=== PATIENT | male | born 1960 | race Caucasian/White ===

== ENCOUNTER 2020-11-17 23:28 | Outpatient (CLI) | payer OTHER | END 2020-11-17 23:59 | disposition critical access hospital (66) | LOC: EMS 23:28 | DX: K92.0 Hematemesis (principal); R41.82 Altered mental status, unspecified | CPT/HCPCS: A0425; A0427 ==

== ENCOUNTER 2020-11-17 23:48 | Emergency (ER) | payer OTHER ==
[2020-11-17] MEDS ORDERED: NALOXONE 0.4 MG/ML VIAL ONE (23:55)
[2020-11-18] MEDS ORDERED: NALOXONE 0.4 MG/ML VIAL IVP STA ×2 (00:02→01:05)
--- NOTE | 2020-11-18 00:02 | ED Physician Documentation ---
PD HPI ALTERED MENTAL STATUS - Stated complaint Stated Complaint: UNRESPONSIVE - Chief complaint Chief Complaint: Neuro - History obtained from History obtained from: EMS - History of Present Illness Timing - onset: Today Quality / character: Unresponsive Basline status: Other (unknown) Treatment WHOLESALER: Accucheck (127) - Additional information Additional information: BIBA. patient noncontributory to HPI/ROS/exam due to severely AMS. Per EMS report, patient lives with a roommate. Roommate told EMS that patient indicated he didn't feel well at approximately 5 PM tonight. The roommate c hecked on patient approximately 30 minutes WHOLESALER and found patient on the floor in the bathroom with blood around his mouth and on the bathroom floor, minimally responsive. EMS confirm that there was significant amount of blood on bathroom floor around patient on scene and that patient is minimally responsive. EMS says patient's GCS is 8, but that he became less responsive en route to ED. Review of Systems Unable to obtain: Unresponsive PD PAST MEDICAL HISTORY - Past Medical History Other Past Medical History: unknown - Past Surgical History Other past surgical history: unknown - Present Medications Home Medications: Ambulatory Orders Medication Instructions Recorded Confirmed Home Medications Unobtainable 11/18/20 11/18/20 [HOME MEDICATIONS UNOBTAINABLE] - Allergies Allergies/Adverse Reactions: Allergies Allergy/AdvReac Type Severity Reaction Status Date / Time Unable to Assess Allergy Verified 11/18/20 00:04 - Social History Additional Social History: unknown PD ED PE NORMAL - Vitals Vital signs reviewed: Yes - HEENT HEENT: Other (pupils are mid-sized, equal, minimally reactive to light. parched mucous membranes) - Cardiac Cardiac: No murmur - Respiratory Respiratory: No respiratory distress, Clear bilaterally - Abdomen Abdomen: Soft - Derm Derm: Normal color, Warm and dry - Extremities Extremities: No edema - Neuro Eye Opening: None Motor: Withdraws to Pain Verbal: None GCS Score: 6 PD ED PE EXPANDED - General General: Unresponsive, Other (dark red/black vomitus around mouth, down neck and on shirt) - Eyes Eyes: Scleral icterus - Cardiac Cardiac: Tachy, Regular Rhythm - Abdomen Abdomen: Bruising (faint bruising bilateral abdominal wall), Other Abdomen Visual: 1 - swelling (focal, soft swelling with bruising) Results - Vitals Vitals: Vital Signs - 24 hr 11/17/20 11/18/20 11/18/20 23:50 00:10 00:14 Temperature 37.1 C Heart Rate 119 H 123 H 126 H Respiratory 19 18 24 Rate Blood Pressure 189/113 H 147/109 H 220/116 H O2 Saturation 100 100 100 11/18/20 11/18/20 11/18/20 00:17 00:20 00:30 Temperature 36.6 C 35.7 C L Heart Rate 127 H 124 H 123 H Respiratory 19 18 22 Rate Blood Pressure 227/101 H 229/101 H O2 Saturation 100 100 99 11/18/20 11/18/20 11/18/20 00:35 00:40 01:00 Temperature 35.8 C L 35.9 C L Heart Rate 126 H 126 H 123 H Respiratory 21 26 H 20 Rate Blood Pressure 229/101 H 201/103 H 132/75 H O2 Saturation 100 99 95 11/18/20 11/18/20 11/18/20 01:15 01:30 01:45 Temperature 35.9 C L 36 C L 35.9 C L Heart Rate 119 H 115 H 118 H Respiratory 20 20 20 Rate Blood Pressure 128/74 123/70 158/89 H O2 Saturation 93 93 93 11/18/20 11/18/20 11/18/20 01:50 02:21 02:30 Temperature 36.1 C L 36.1 C L Heart Rate 108 H 99 99 Respiratory 14 14 Rate Blood Pressure 92/59 L 91/59 L O2 Saturation 97 97 Oxygen O2 Source Mechanical ventilator - EKG (time done) No standard instances Rate: Rate (enter#) (121) Rhythm: Sinus tachycardia [place]: Normal Intervals: Normal [place] QRS: Normal Ischemia: Normal ST segments - Labs Labs: Laboratory Tests 11/17/20 11/18/20 11/18/20 23:49 00:15 00:15 WBC 11.9 H RBC 3.55 L Hgb 11.4 L Hct 35.8 L MCV 100.8 H MCH 32.1 H MCHC 31.8 L RDW 18.9 H Plt Count 138 MPV 12.2 H Neut # (Auto) 9.9 H Lymph # (Auto) 0.9 L Mcpherson # (Auto) 1.0 Eos # (Auto) 0.0 Baso # (Auto) 0.0 Absolute Nucleated RBC 0.00 Nucleated RBC % 0.0 PT INR APTT Sodium 143 Potassium 4.4 Chloride 108 Carbon Dioxide 18 L Anion Gap 17.0 H BUN 40 H Creatinine 0.9 Estimated GFR (MDRD) 87 L Glucose 144 H Calcium 7.9 L Total Bilirubin 3.9 H AST 89 H ALT 52 Alkaline Phosphatase 119 Ammonia Troponin I High Sens B-Natriuretic Peptide 106 H Total Protein 6.5 L Albumin 2.7 L Globulin 3.8 Albumin/Globulin Ratio 0.7 L Lipase 31 Urine Color Urine Clarity Urine pH Ur Specific Cherry Log Urine Protein Urine Glucose (UA) Urine Ketones Urine Occult Blood Urine Nitrite Urine Bilirubin Urine Urobilinogen Ur Leukocyte Esterase Urine RBC Urine WBC Ur Squamous Epith Cells Urine Bacteria Ur Microscopic Review Urine Culture Comments Nasal Adenovirus (PCR) Nasal B. parapertussis DNA (PCR) Nasal Coronavir 229E PCR Nasal Coronavir HKU1 PCR Nasal Coronavir NL63 PCR Nasal Coronavir OC43 PCR Nasal Enterovir/Rhinovir PCR Nasal Influenza B PCR Nasal Influenza A PCR Nasal Parainfluen 1 PCR Nasal Parainfluen 2 PCR Nasal Parainfluen 3 PCR Nasal Parainfluen 4 PCR Nasal RSV (PCR) Nasal B.pertussis DNA PCR Nasal C.pneumoniae (PCR) Samson Human Metapneumo PCR Nasal M.pneumoniae (PCR) Nasal SARS-CoV-2 (PCR) Salicylates < 6.0 Urine Opiates Screen Ur Oxycodone Screen Urine Methadone Screen Ur Propoxyphene Screen Acetaminophen < 10 L Ur Barbiturates Screen Ur Tricyclics Screen Ur Phencyclidine Scrn Ur Amphetamine Screen U Methamphetamines Scrn U Benzodiazepines Scrn Urine Cocaine Screen U Cannabinoids Screen Ethyl Alcohol < 5.0 Blood Type Blood Type Recheck Antibody Screen Crossmatch IS Only 11/18/20 11/18/20 11/18/20 00:15 00:15 00:16 WBC RBC Hgb Hct MCV MCH MCHC RDW Plt Count MPV Neut # (Auto) Lymph # (Auto) Mcpherson # (Auto) Eos # (Auto) Baso # (Auto) Absolute Nucleated RBC Nucleated RBC % PT INR APTT Sodium Potassium Chloride Carbon Dioxide Anion Gap BUN Creatinine Estimated GFR (MDRD) Glucose Calcium Total Bilirubin AST ALT Alkaline Phosphatase Ammonia Troponin I High Sens 122.0 H* B-Natriuretic Peptide Total Protein Albumin Globulin Albumin/Globulin Ratio Lipase Urine Color Urine Clarity Urine pH Ur Specific Cherry Log Urine Protein Urine Glucose (UA) Urine Ketones Urine Occult Blood Urine Nitrite Urine Bilirubin Urine Urobilinogen Ur Leukocyte Esterase Urine RBC Urine WBC Ur Squamous Epith Cells Urine Bacteria Ur Microscopic Review Urine Culture Comments Nasal Adenovirus (PCR) Nasal B. parapertussis DNA (PCR) Nasal Coronavir 229E PCR Nasal Coronavir HKU1 PCR Nasal Coronavir NL63 PCR Nasal Coronavir OC43 PCR Nasal Enterovir/Rhinovir PCR Nasal Influenza B PCR Nasal Influenza A PCR Nasal Parainfluen 1 PCR Nasal Parainfluen 2 PCR Nasal Parainfluen 3 PCR Nasal Parainfluen 4 PCR Nasal RSV (PCR) Nasal B.pertussis DNA PCR Nasal C.pneumoniae (PCR) Samson Human Metapneumo PCR Nasal M.pneumoniae (PCR) Nasal SARS-CoV-2 (PCR) Salicylates Urine Opiates Screen Ur Oxycodone Screen Urine Methadone Screen Ur Propoxyphene Screen Acetaminophen Ur Barbiturates Screen Ur Tricyclics Screen Ur Phencyclidine Scrn Ur Amphetamine Screen U Methamphetamines Scrn U Benzodiazepines Scrn Urine Cocaine Screen U Cannabinoids Screen Ethyl Alcohol Blood Type O POSITIVE Blood Type Recheck O POSITIVE Antibody Screen NEGATIVE Crossmatch IS Only See Detail 11/18/20 11/18/20 11/18/20 00:33 00:34 01:16 WBC RBC Hgb Hct MCV MCH MCHC RDW Plt Count MPV Neut # (Auto) Lymph # (Auto) Mcpherson # (Auto) Eos # (Auto) Baso # (Auto) Absolute Nucleated RBC Nucleated RBC % PT 21.8 H INR 2.0 H APTT 27.0 Sodium Potassium Chloride Carbon Dioxide Anion Gap BUN Creatinine Estimated GFR (MDRD) Glucose Calcium Total Bilirubin AST ALT Alkaline Phosphatase Ammonia Troponin I High Sens B-Natriuretic Peptide Total Protein Albumin Globulin Albumin/Globulin Ratio Lipase Urine Color YELLOW Urine Clarity CLEAR Urine pH 6.0 Ur Specific Cherry Log 1.025 Urine Protein NEGATIVE Urine Glucose (UA) NEGATIVE Urine Ketones NEGATIVE Urine Occult Blood MODERATE H Urine Nitrite NEGATIVE Urine Bilirubin NEGATIVE Urine Urobilinogen 1 (NORMAL) Ur Leukocyte Esterase NEGATIVE Urine RBC 6-10 H Urine WBC 0-3 Ur Squamous Epith Cells RARE Squamous Urine Bacteria None Seen Ur Microscopic Review INDICATED Urine Culture Comments NOT INDICATED Nasal Adenovirus (PCR) NOT DETECTED Nasal B. parapertussis DNA (PCR) NOT DETECTED Nasal Coronavir 229E PCR NOT DETECTED Nasal Coronavir HKU1 PCR NOT DETECTED Nasal Coronavir NL63 PCR NOT DETECTED Nasal Coronavir OC43 PCR NOT DETECTED Nasal Enterovir/Rhinovir PCR NOT DETECTED Nasal Influenza B PCR NOT DETECTED Nasal Influenza A PCR NOT DETECTED Nasal Parainfluen 1 PCR NOT DETECTED Nasal Parainfluen 2 PCR NOT DETECTED Nasal Parainfluen 3 PCR NOT DETECTED Nasal Parainfluen 4 PCR NOT DETECTED Nasal RSV (PCR) NOT DETECTED Nasal B.pertussis DNA PCR NOT DETECTED Nasal C.pneumoniae (PCR) NOT DETECTED Samson Human Metapneumo PCR NOT DETECTED Nasal M.pneumoniae (PCR) NOT DETECTED Nasal SARS-CoV-2 (PCR) NOT DETECTED Salicylates Urine Opiates Screen NEGATIVE Ur Oxycodone Screen NEGATIVE Urine Methadone Screen NEGATIVE Ur Propoxyphene Screen NEGATIVE Acetaminophen Ur Barbiturates Screen NEGATIVE Ur Tricyclics Screen NEGATIVE Ur Phencyclidine Scrn NEGATIVE Ur Amphetamine Screen NEGATIVE U Methamphetamines Scrn NEGATIVE U Benzodiazepines Scrn NEGATIVE Urine Cocaine Screen NEGATIVE U Cannabinoids Screen POSITIVE H Ethyl Alcohol Blood Type Blood Type Recheck Antibody Screen Crossmatch IS Only 11/18/20 01:16 WBC RBC Hgb Hct MCV MCH MCHC RDW Plt Count MPV Neut # (Auto) Lymph # (Auto) Mcpherson # (Auto) Eos # (Auto) Baso # (Auto) Absolute Nucleated RBC Nucleated RBC % PT INR APTT Sodium Potassium Chloride Carbon Dioxide Anion Gap BUN Creatinine Estimated GFR (MDRD) Glucose Calcium Total Bilirubin AST ALT Alkaline Phosphatase Ammonia 184.7 H* Troponin I High Sens B-Natriuretic Peptide Total Protein Albumin Globulin Albumin/Globulin Ratio Lipase Urine Color Urine Clarity Urine pH Ur Specific Cherry Log Urine Protein Urine Glucose (UA) Urine Ketones Urine Occult Blood Urine Nitrite Urine Bilirubin Urine Urobilinogen Ur Leukocyte Esterase Urine RBC Urine WBC Ur Squamous Epith Cells Urine Bacteria Ur Microscopic Review Urine Culture Comments Nasal Adenovirus (PCR) Nasal B. parapertussis DNA (PCR) Nasal Coronavir 229E PCR Nasal Coronavir HKU1 PCR Nasal Coronavir NL63 PCR Nasal Coronavir OC43 PCR Nasal Enterovir/Rhinovir PCR Nasal Influenza B PCR Nasal Influenza A PCR Nasal Parainfluen 1 PCR Nasal Parainfluen 2 PCR Nasal Parainfluen 3 PCR Nasal Parainfluen 4 PCR Nasal RSV (PCR) Nasal B.pertussis DNA PCR Nasal C.pneumoniae (PCR) Samson Human Metapneumo PCR Nasal M.pneumoniae (PCR) Nasal SARS-CoV-2 (PCR) Salicylates Urine Opiates Screen Ur Oxycodone Screen Urine Methadone Screen Ur Propoxyphene Screen Acetaminophen Ur Barbiturates Screen Ur Tricyclics Screen Ur Phencyclidine Scrn Ur Amphetamine Screen U Methamphetamines Scrn U Benzodiazepines Scrn Urine Cocaine Screen U Cannabinoids Screen Ethyl Alcohol Blood Type Blood Type Recheck Antibody Screen Crossmatch IS Only - Rads (name of study) CT head Radiology: Prelim report reviewed, See rad report chest xray Radiology: Prelim report reviewed, See rad report Procedures - Intubation Provider: Emergency physician Medications: Versed, Propofol Blade: Glidescope Tube: Size-enter number (7.5), Cuffed, Marked at lips-enter cm (25) Route: Oral Confirmation: Direct visualization (via glidescope), Bilateral breath sounds, No abdominal breath sound, Pulse ox, Chest xray Complications: No compications, Other (CXR shows ETT 4.5 cm AC, and subsequently it was advanced 2 cm by respiratory therapist) PD MEDICAL DECISION MAKING - ED course Complexity details: reviewed results, re-evaluated patient, considered differential ED course: NGT has 100cc dark black/coffee ground output, further suggestive UGI bleeding. He arrives minimally responsive and is intubated for airway protection, with GCS of 6 on my exam. By the time of transfer out of our ED, NGT output was 275 cc black/coffee ground material. His blood tests are most notable for significantly elevated ammonia, mildly elevated bilirubin, bun 40 with normal creatinine. D/W Dr. Ye (hospitalist at [facility]); he recommends transfer, as patient would likely benefit from higher level of care. Given his elevated bilirubin and very high ammonia, the concern is possible hepatic encephalopathy and whether he has bleeding from varices would be best determined at a facility that could properly intervene (possibly would need IR, for example). D/W Dr. Doe (agricultural economics professor at [employer] [employer] [facility]/[place]), he accepts transfer to [facility]. - Critical Care Time(min): 45 Time Includes: Direct patient care, Reassess patient, Document care, Coordinate care, See progress note Data interpretation: Labs, Pulse ox, CXR, See progress note Procedures included in critical care time: Ventilator mgmt, See progress note Procedures excluded from critical care time: Intubation, EKG, See progress note Departure - Departure Disposition: 02 Transfer Acute Care Hosp Clinical Impression: Upper gastrointestinal bleeding, Encephalopathy Condition: Stable Discharge Date/Time: 11/18/20 03:10
[2020-11-18] MEDS ORDERED: MIDAZOLAM 2 MG/2 ML VIAL ONE ×2 (00:03→00:09)
[2020-11-18] MEDS ORDERED: NALOXONE 0.4 MG/ML VIAL ONE (00:03)
[2020-11-18] MEDS ORDERED: PANTOPRAZOLE 40 MG VIAL IVP STA (00:03)
[2020-11-18] MEDS ORDERED: SUCCINYLCHOLINE 200 MG/10 ML VIAL ONE ×2 (00:04→00:11)
[2020-11-18] MEDS ORDERED: KETAMINE 500 MG/10 ML VIAL ONE (00:09)
[2020-11-18] MEDS ORDERED: ETOMIDATE 40 MG/20 ML VIAL IVP ONE (00:09)
[2020-11-18] MEDS ORDERED: PROPOFOL 200 MG/20 ML VIAL IVP ONE (00:10)
[2020-11-18] MEDS ORDERED: ROCURONIUM 50 MG/5 ML VIAL ONE (00:10)
[2020-11-18] MEDS ORDERED: OCTREOTIDE 500 MCG in SODIUM CHLORIDE 0.9% 100ML 95 ML IV STA (00:25)
[2020-11-18] MEDS ORDERED: PROPOFOL 500 MG/50 ML 500 MG/50 ML VIAL IV STA ×2 (00:26→02:47)
[2020-11-18] MEDS ORDERED: PROPOFOL 500 MG/50 ML 500 MG/50 ML VIAL ONE (00:28)
[2020-11-18 00:30] LABS: BASOPHILS % (AUTO) 0.3 %; EOSINOPHILS % (AUTO) 0.2 %; HCT - HEMATOCRIT 35.8 % (42.0-52.0); HGB - HEMOGLOBIN 11.4 g/dL (14.0-18.0); LYMPHOCYTES # (AUTO) 0.9 10^3/uL (1.5-3.5); LYMPHOCYTES % (AUTO) 7.3 %; MEAN CORPUSCULAR HEMOGLOBIN 32.1 pg (27.0-31.0); MEAN CORPUSCULAR HGB CONC 31.8 g/dL (32.0-36.0); MEAN CORPUSCULAR VOLUME 100.8 fL (80.0-94.0); MEAN PLATELET VOLUME 12.2 fL (7.4-11.4); MONOCYTES % (AUTO) 8.6 %; NEUTROPHILS # (AUTO) 9.9 10^3/uL (1.5-6.6); NEUTROPHILS % (AUTO) 83.2 %; PLT - PLATELET COUNT 138 10^3/uL (130-450); RED BLOOD COUNT 3.55 10^6/uL (4.70-6.10); RED CELL DISTRIBUTION WIDTH 18.9 % (12.0-15.0); WHITE BLOOD COUNT 11.9 x10^3/uL (4.8-10.8)
[2020-11-18 01:04] LABS: MUDS CUTOFF CONCENTRATIONS CUTOFF CONC BELOW:
[2020-11-18] MEDS ORDERED: OCTREOTIDE 100 MCG/ML VIAL ONE (01:05)
[2020-11-18 01:06] LABS: BILIRUBIN,URINE NEGATIVE (NEGATIVE); GLUCOSE, URINE (UA) NEGATIVE (NEGATIVE); KETONES,URINE (UA) NEGATIVE (NEGATIVE); LEUKOCYTE ESTERASE, URINE NEGATIVE (NEGATIVE); NITRITE,URINE NEGATIVE (NEGATIVE); OCCULT BLOOD,URINE MODERATE (NEGATIVE); PROTEIN,URINE NEGATIVE (NEGATIVE); UROBILINOGEN,URINE 1 (NORMAL) E.U./dL (NORMAL)
[2020-11-18] MEDS ORDERED: PROPOFOL 200 MG/20 ML VIAL IVP STA (01:06)
[2020-11-18 01:14] LABS: BACTERIA,URINE None Seen /HPF (None Seen); CLARITY,URINE CLEAR (CLEAR); SQUAMOUS EPITHELIAL CELL,UR RARE Squamous (<= Few); WBC,URINE 0-3 /HPF (0-3)
[2020-11-18 01:15] LABS: THC CANNABINOID SCREEN, URINE POSITIVE (NEGATIVE)
[2020-11-18 01:15] LABS: ACETAMINOPHEN < 10 ug/mL (10-30); ALBUMIN 2.7 g/dL (3.2-5.5); ALBUMIN/GLOBULIN RATIO 0.7 (1.0-2.2); ALKALINE PHOSPHATASE 119 IU/L (42-121); ALT ALANINE AMINOTRANSFERASE 52 IU/L (10-60); AST ASPARTATE AMINOTRANSFERASE 89 IU/L (10-42); BILIRUBIN,TOTAL 3.9 mg/dL (0.2-1.0); BUN - BLOOD UREA NITROGEN 40 mg/dL (6-20); CALCIUM 7.9 mg/dL (8.5-10.3); CARBON DIOXIDE - CO2 18 mmol/L (21-32); CHLORIDE 108 mmol/L (101-111); CREATININE 0.9 mg/dL (0.6-1.2); ETOH - ETHANOL < 5.0 mg/dL; GFR - MDRD 87 (>89); GLUCOSE 144 mg/dL (70-100); LIPASE 31 U/L (22-51); POTASSIUM 4.4 mmol/L (3.5-5.0); SALICYLATE < 6.0 mg/dL; SODIUM 143 mmol/L (135-145); TOTAL PROTEIN 6.5 g/dL (6.7-8.2)
[2020-11-18 01:16] LABS: AMPHETAMINE SCREEN,URINE NEGATIVE (NEGATIVE); BARBITURATE SCREEN,UR NEGATIVE (NEGATIVE); BENZODIAZEPINES SCREEN, URINE NEGATIVE (NEGATIVE); COCAINE SCREEN URINE NEGATIVE (NEGATIVE); METHADONE SCREEN, URINE NEGATIVE (NEGATIVE); METHAMPHETAMINES SCREEN, URINE NEGATIVE (NEGATIVE); OPIATE SCREEN, URINE NEGATIVE (NEGATIVE); OXYCODONE SCREEN, URINE NEGATIVE (NEGATIVE); PROPOXYPHENE SCREEN, URINE NEGATIVE (NEGATIVE); TRICYCLIC ANTIDEPRESSANT,URINE NEGATIVE (NEGATIVE)
[2020-11-18] MEDS ORDERED: MIDAZOLAM 2 MG/2 ML VIAL IVP STA ×2 (01:17→01:20)
[2020-11-18] MEDS ORDERED: SUCCINYLCHOLINE 200 MG/10 ML VIAL IVP STA (01:21)
[2020-11-18] MEDS ORDERED: SODIUM CHLORIDE 0.9% 1,000 ML IV STA ×3 (01:21→03:02)
[2020-11-18 01:39] LABS: B. PARAPERTUSSIS- RESP PCR PAN NOT DETECTED; B. PERTUSSIS- RESP PCR PANEL NOT DETECTED; C. PNEUMONIAE- RESP PCR PANEL NOT DETECTED; CORONAVIRUS 229E-RESP PCR NOT DETECTED; CORONAVIRUS HKU1-RESP PCR NOT DETECTED; CORONAVIRUS NL63-RESP PCR NOT DETECTED; CORONAVIRUS OC43-RESP PCR NOT DETECTED; HUMAN METAPNEUMOVIRUS NOT DETECTED; INFLUENZA A- RESP PCR PANEL NOT DETECTED; INFLUENZA B - RESP PCR PANEL NOT DETECTED; M. PNEUMONIAE- RESP PCR PANEL NOT DETECTED; PARAINFLUENZA VIRUS 1 NOT DETECTED; PARAINFLUENZA VIRUS 2 NOT DETECTED; PARAINFLUENZA VIRUS 3 NOT DETECTED; PARAINFLUENZA VIRUS 4 NOT DETECTED; RHINOVIRUS/ENTEROVIRUS NOT DETECTED; RSV- RESP PCR PANEL NOT DETECTED; SARS-CoV-2 -RESP PCR PANEL NOT DETECTED
[2020-11-18 01:47] LABS: PT - PROTHROMBIN TIME 21.8 secs (9.9-12.6)
[2020-11-18 03:19] VITALS: BP 91/59
--- NOTE | 2020-11-18 06:58 | CT Report ---
PROCEDURE: HEAD WO INDICATIONS: Acute altered mental status. TECHNIQUE: Noncontrast 4.5 mm thick angled axial sections acquired from the foramen magnum to the vertex. For r adiation dose reduction, the following was used: automated exposure control, adjustment of mA and/or kV according to patient size. COMPARISON: None FINDINGS: Image quality: Degraded by patient motion artifact. CSF spaces: Basal cisterns are patent. No extra-axial fluid collections. The ventricles are symmet salma in size and shape. Brain: No intracranial bleeds or masses. There is cerebral volume loss for age, with resultant vent ricular and sulcal prominence. There are periventricular and deep white matter chronic small vessel ischemic changes. There is intracranial internal carotid artery atherosclerosis. Skull and face: Calvarium and visualized facial bones appear intact, without suspicious lesions. Sinuses: Visualized sinuses and mastoids are clear. IMPRESSION: No acute intracranial disease process. Reviewed by: Linda Peck MD, PhD on 11/18/2020 6:57 AM PDT Approved by: Linda Peck MD, PhD on 11/18/2020 6:57 AM PDT Station ID: [id number]
--- NOTE | 2020-11-18 08:25 | XRAY Report ---
PROCEDURE: Chest for Line Placement INDICATIONS: ETT TECHNIQUE: One view of the chest was acquired. COMPARISON: None FINDINGS: Surgical changes and devices: Endotracheal tube positioning normal. Lungs and pleura: No pleural effusions or pneumothorax. Lungs are mildly abnormal, with a mild alve olar edema pattern but this is in the setting of moderately reduced inspiratory volume.. Mediastinum: Mediastinal contours appear normal. Heart size is normal. Bones and chest wall: No suspicious bony lesions. Overlying soft tissues appear unremarkable. IMPRESSION: The endotracheal tube positioning normal. Mild pulmonary edema pattern, but in the setting of reduced inspiratory volume. This could represent a manifestation of crowding of bronchovascular markings wit hout alveolar edema, for example. Reviewed by: Pavan Jalloh MD on 11/18/2020 8:24 AM PDT Approved by: Pavan Jalloh MD on 11/18/2020 8:24 AM PDT Station ID: [id number]
== END 2020-11-18 03:10 | disposition short-term general hospital (02) ==
LOC: EDUNIT# → EDBD → ED 23:48
DX: K92.0 Hematemesis (principal); G93.40 Encephalopathy, unspecified; R40.2432 Glasgow coma scale score 3-8, at arrival to emergency department; R00.0 Tachycardia, unspecified; Z20.822 Contact with and (suspected) exposure to COVID-19
CPT/HCPCS: 0202U; 31500; 36415; 51702; 70450; 71045; 80053; 80306; 80307; 80320; 80329; 81001; 82140; 83690; 83880; 84484; 85025; 85610; 85730; 86850; 86900; 86901; 86920; 93005; 96361; 96374; 96375; 99291; 99292; J0330; J2354; 81003; 82803; 87086

== ENCOUNTER 2021-03-03 17:55 | Outpatient (CLI) | payer OTHER | END 2021-03-03 17:56 | disposition critical access hospital (66) | LOC: EMS 17:55 | DX: R41.82 Altered mental status, unspecified (principal) | CPT/HCPCS: A0425; A0427 ==

== ENCOUNTER 2021-03-03 18:12 | Inpatient (IN) | payer OTHER ==
[2021-03-03] MEDS ORDERED: cefTRIAXone 1 GM VIAL IVP STA (18:30)
[2021-03-03] MEDS ORDERED: PANTOPRAZOLE 40 MG VIAL IVP STA (18:30)
[2021-03-03] MEDS ORDERED: SODIUM CHLORIDE 0.9% 1,000 ML IV STA ×2 (18:31→19:29)
[2021-03-03] MEDS ORDERED: OCTREOTIDE 100 MCG/ML VIAL IVP STA (18:31)
[2021-03-03 18:45] LABS: BASOPHILS % (AUTO) 0.3 %; EOSINOPHILS % (AUTO) 0.2 %; HGB - HEMOGLOBIN 10.6 g/dL (14.0-18.0); LYMPHOCYTES # (AUTO) 0.3 10^3/uL (1.5-3.5); LYMPHOCYTES % (AUTO) 3.6 %; MEAN CORPUSCULAR HEMOGLOBIN 33.2 pg (27.0-31.0); MEAN CORPUSCULAR HGB CONC 33.1 g/dL (32.0-36.0); MEAN CORPUSCULAR VOLUME 100.3 fL (80.0-94.0); MEAN PLATELET VOLUME 12.4 fL (7.4-11.4); MONOCYTES # (AUTO) 0.3 10^3/uL (0.0-1.0); MONOCYTES % (AUTO) 2.9 %; NEUTROPHILS # (AUTO) 8.5 10^3/uL (1.5-6.6); NEUTROPHILS % (AUTO) 92.3 %; PLT - PLATELET COUNT 114 10^3/uL (130-450); RED BLOOD COUNT 3.19 10^6/uL (4.70-6.10); WHITE BLOOD COUNT 9.2 x10^3/uL (4.8-10.8)
[2021-03-03 18:47] LABS: SLIDE REVIEW? Indicated
[2021-03-03 19:08] LABS: INR 3.9 (0.8-1.2)
[2021-03-03 19:15] LABS: PARTIAL THROMBOPLASTIN TIME 52.4 secs (24.9-33.3)
[2021-03-03 19:20] LABS: ALBUMIN 2.1 g/dL (3.2-5.5); ALBUMIN/GLOBULIN RATIO 0.5 (1.0-2.2); BILIRUBIN,TOTAL 7.1 mg/dL (0.2-1.0); CALCIUM 8.3 mg/dL (8.5-10.3); CREATININE 5.7 mg/dL (0.6-1.2); TOTAL PROTEIN 6.5 g/dL (6.7-8.2)
[2021-03-03 19:24] LABS: POTASSIUM 6.3 mmol/L (3.5-5.0)
[2021-03-03 19:31] LABS: BILIRUBIN,URINE NEGATIVE (NEGATIVE); GLUCOSE, URINE (UA) NEGATIVE (NEGATIVE); KETONES,URINE (UA) NEGATIVE (NEGATIVE); LEUKOCYTE ESTERASE, URINE NEGATIVE (NEGATIVE); NITRITE,URINE NEGATIVE (NEGATIVE); OCCULT BLOOD,URINE NEGATIVE (NEGATIVE); PROTEIN,URINE TRACE mg/dL (NEGATIVE); UROBILINOGEN,URINE 0.2 (NORMAL) E.U./dL (NORMAL)
[2021-03-03 19:34] LABS: CLARITY,URINE CLEAR (CLEAR)
[2021-03-03 19:43] LABS: PLATELET ESTIMATE, MANUAL DECREASED (<130,000) (NORMAL); PLATELET MORPHOLOGY NORMAL APPEARANCE (NORMAL)
--- NOTE | 2021-03-03 20:07 | ED Physician Documentation ---
History of Present Illness - Stated complaint Stated Complaint: FOUND DOWN - Chief complaint Chief Complaint: Neuro - History obtained from History obtained from: Patient, EMS - History of Present Illness Timing: Today Pain level max: 0 Pain level now: 0 - Additonal information Additional information: Patient is a 59-year-old male with a history of end-stage liver disease, esophageal varices. He recently spent 2 months at [facility] in [place]. His roommate called EMS today because the patient has been lying on the floor for the past 2 days. Not eating or drinking. He apparently has vomited dark appearing emesis. He has also had very dark stools. Unknown if any other injuries. Review of Systems Unable to obtain: Confused PD PAST MEDICAL HISTORY - Past Medical History Past Medical History: Yes GI: Esophageal varices, Cirrhosis, Other (End-stage liver disease) - Present Medications Home Medications: Ambulatory Orders Medication Instructions Recorded Confirmed Furosemide [Lasix] 40 mg PO DAILY 03/03/21 03/03/21 Lactulose 10 gm PO TID 03/03/21 03/03/21 Nadolol [Corgard] 40 mg PO DAILY 03/03/21 03/03/21 Omeprazole 20 mg PO DAILY 03/03/21 03/03/21 Spironolactone [Aldactone] 100 mg PO DAILY 03/03/21 03/03/21 - Allergies Allergies/Adverse Reactions: Allergies Allergy/AdvReac Type Severity Reaction Status Date / Time Unable to Assess Allergy Verified 11/18/20 00:04 - Living Situation Living Arrangement: reports: At home - Social History Does the pt drink ETOH?: No ETOH Use: Other (Patient reportedly quit drinking) - Family History Family history: reports: Non contributory PD ED PE NORMAL - General General: Other (thin frail, jaundiced) - HEENT HEENT: Moist mucous membranes - Neck Neck: Supple, no meningeal sign - Cardiac Cardiac: RRR, Strong equal pulses - Respiratory Respiratory: No respiratory distress, Clear bilaterally - Abdomen Abdomen: Soft, Non tender, Non distended, Other (Large right lower quadrant abdomen incarcerated hernia) - Back Back: No spinal TTP - Derm Derm: Warm and dry - Extremities Extremities: No edema, No calf tenderness / cord - Neuro Eye Opening: Spontaneous Motor: Localizes to Pain Verbal: Confused GCS Score: 13 Results - Vitals Vitals: Vital Signs - 24 hr 03/03/21 03/03/21 03/03/21 18:15 18:54 19:24 Temperature 34.9 C L 31.7 C L Heart Rate 74 77 78 Respiratory 14 16 11 L Rate Blood Pressure 137/110 H 131/89 H 149/50 H O2 Saturation 95 95 96 03/03/21 03/03/21 03/03/21 19:30 20:00 20:30 Temperature 31.8 C L 32 C L 32.5 C L Heart Rate 76 76 78 Respiratory 11 L 11 L 11 L Rate Blood Pressure 114/66 109/64 111/57 L O2 Saturation 96 96 94 03/03/21 03/03/21 03/03/21 21:00 21:30 22:04 Temperature 32.9 C L 33.3 C L 33.8 C L Heart Rate 75 80 84 Respiratory 11 L 12 11 L Rate Blood Pressure 103/56 L 105/60 105/53 L O2 Saturation 93 93 91 L Oxygen O2 Source Room air - Labs Labs: Laboratory Tests 03/03/21 03/03/21 03/03/21 18:25 18:53 18:53 WBC 9.2 RBC 3.19 L Hgb 10.6 L Hct 32.0 L MCV 100.3 H MCH 33.2 H MCHC 33.1 RDW 21.0 H Plt Count 114 L MPV 12.4 H Neut # (Auto) 8.5 H Lymph # (Auto) 0.[address] [place] # (Auto) 0.3 Eos # (Auto) 0.0 Baso # (Auto) 0.0 Absolute Nucleated RBC 0.00 Nucleated RBC % 0.0 Manual Slide Review Indicated Platelet Estimate DECREASED (<130,000) Platelet Morphology NORMAL APPEARANCE RBC Morph Micro Appear 1+ ACANTHOCYTES PT 40.0 H INR 3.9 H APTT 52.4 H Sodium Potassium Chloride Carbon Dioxide Anion Gap BUN Creatinine Estimated GFR (MDRD) Glucose Lactic Acid Calcium Total Bilirubin AST ALT Alkaline Phosphatase Ammonia 49.7 H Total Creatine Kinase Total Protein Albumin Globulin Albumin/Globulin Ratio Lipase Urine Color Urine Clarity Urine pH Ur Specific [place] Urine Protein Urine Glucose (UA) Urine Ketones Urine Occult Blood Urine Nitrite Urine Bilirubin Urine Urobilinogen Ur Leukocyte Esterase Ur Microscopic Review Urine Culture Comments Nasal Adenovirus (PCR) Nasal B. parapertussis DNA (PCR) Nasal Coronavir 229E PCR Nasal Coronavir HKU1 PCR Nasal Coronavir NL63 PCR Nasal Coronavir OC43 PCR Nasal Enterovir/Rhinovir PCR Nasal Influenza B PCR Nasal Influenza A PCR Nasal Parainfluen 1 PCR Nasal Parainfluen 2 PCR Nasal Parainfluen 3 PCR Nasal Parainfluen 4 PCR Nasal RSV (PCR) Nasal B.pertussis DNA PCR Nasal C.pneumoniae (PCR) Samson Human Metapneumo PCR Nasal M.pneumoniae (PCR) Nasal SARS-CoV-2 (PCR) Blood Type Antibody Screen 03/03/21 03/03/21 03/03/21 18:53 18:53 18:53 WBC RBC Hgb Hct MCV MCH MCHC RDW Plt Count MPV Neut # (Auto) Lymph # (Auto) [place] # (Auto) Eos # (Auto) Baso # (Auto) Absolute Nucleated RBC Nucleated RBC % Manual Slide Review Platelet Estimate Platelet Morphology RBC Morph Micro Appear PT INR APTT Sodium 134 L Potassium 6.3 H* Chloride 102 Carbon Dioxide 11 L* Anion Gap 21.0 H BUN 135 H* Creatinine 5.7 H Estimated GFR (MDRD) 10 L Glucose 96 Lactic Acid Calcium 8.3 L Total Bilirubin 7.1 H AST 392 H ALT 139 H Alkaline Phosphatase 136 H Ammonia Total Creatine Kinase 95 Total Protein 6.5 L Albumin 2.1 L Globulin 4.4 H Albumin/Globulin Ratio 0.5 L Lipase 64 H Urine Color Urine Clarity Urine pH Ur Specific [place] Urine Protein Urine Glucose (UA) Urine Ketones Urine Occult Blood Urine Nitrite Urine Bilirubin Urine Urobilinogen Ur Leukocyte Esterase Ur Microscopic Review Urine Culture Comments Nasal Adenovirus (PCR) Nasal B. parapertussis DNA (PCR) Nasal Coronavir 229E PCR Nasal Coronavir HKU1 PCR Nasal Coronavir NL63 PCR Nasal Coronavir OC43 PCR Nasal Enterovir/Rhinovir PCR Nasal Influenza B PCR Nasal Influenza A PCR Nasal Parainfluen 1 PCR Nasal Parainfluen 2 PCR Nasal Parainfluen 3 PCR Nasal Parainfluen 4 PCR Nasal RSV (PCR) Nasal B.pertussis DNA PCR Nasal C.pneumoniae (PCR) Samson Human Metapneumo PCR Nasal M.pneumoniae (PCR) Nasal SARS-CoV-2 (PCR) Blood Type O POSITIVE Antibody Screen NEGATIVE 03/03/21 03/03/21 03/03/21 19:15 19:23 20:00 WBC RBC Hgb Hct MCV MCH MCHC RDW Plt Count MPV Neut # (Auto) Lymph # (Auto) [place] # (Auto) Eos # (Auto) Baso # (Auto) Absolute Nucleated RBC Nucleated RBC % Manual Slide Review Platelet Estimate Platelet Morphology RBC Morph Micro Appear PT INR APTT Sodium Potassium Chloride Carbon Dioxide Anion Gap BUN Creatinine Estimated GFR (MDRD) Glucose Lactic Acid 7.5 H* Calcium Total Bilirubin AST ALT Alkaline Phosphatase Ammonia Total Creatine Kinase Total Protein Albumin Globulin Albumin/Globulin Ratio Lipase Urine Color DARK YELLOW Urine Clarity CLEAR Urine pH 5.0 Ur Specific [place] 1.025 Urine Protein TRACE Urine Glucose (UA) NEGATIVE Urine Ketones NEGATIVE Urine Occult Blood NEGATIVE Urine Nitrite NEGATIVE Urine Bilirubin NEGATIVE Urine Urobilinogen 0.2 (NORMAL) Ur Leukocyte Esterase NEGATIVE Ur Microscopic Review NOT INDICATED Urine Culture Comments NOT INDICATED Nasal Adenovirus (PCR) NOT DETECTED Nasal B. parapertussis DNA (PCR) NOT DETECTED Nasal Coronavir 229E PCR NOT DETECTED Nasal Coronavir HKU1 PCR NOT DETECTED Nasal Coronavir NL63 PCR NOT DETECTED Nasal Coronavir OC43 PCR NOT DETECTED Nasal Enterovir/Rhinovir PCR NOT DETECTED Nasal Influenza B PCR NOT DETECTED Nasal Influenza A PCR NOT DETECTED Nasal Parainfluen 1 PCR NOT DETECTED Nasal Parainfluen 2 PCR NOT DETECTED Nasal Parainfluen 3 PCR NOT DETECTED Nasal Parainfluen 4 PCR NOT DETECTED Nasal RSV (PCR) NOT DETECTED Nasal B.pertussis DNA PCR NOT DETECTED Nasal C.pneumoniae (PCR) NOT DETECTED Samson Human Metapneumo PCR NOT DETECTED Nasal M.pneumoniae (PCR) NOT DETECTED Nasal SARS-CoV-2 (PCR) NOT DETECTED Blood Type Antibody Screen - Rads (name of study) head CT Radiology: Final report received, EMP read contemporaneously, See rad report cervical spine CT Radiology: Final report received, EMP read contemporaneously, See rad report PD MEDICAL DECISION MAKING - ED course Complexity details: reviewed results, re-evaluated patient, considered differential, d/w family ED course: No acute findings on head CT or cervical spine CT. Patient is minimally responsive in the emergency department. He is DNR with limited interventions. His POA arrived to the emergency department and a long discussion was had about the goals of care. After much discussion, it was decided that he would not want any surgical interventions, interventional radiology, transplants, ICU care including central lines, pressors, etc. He does have a incarcerated right lower abdominal hernia, likely has been there for at least 2 days, likely necrotic bowel. unable to be manually reduced. Given IV fluids. Has significant renal failure. His INR has increased to 3.9. Discussed the case with Dr. Mcghee, hospitalist who accepts for comfort care. This document was made in part using voice recognition software. While efforts are made to proofread this document, sound alike and grammatical errors may occur. Departure - Departure Disposition: 66 [facility] DC/Xfer Clinical Impression: End stage liver disease, Hepatic encephalopathy, Uremia, Hyperkalemia, Incarcerated hernia of abdominal cavity Kidney failure, acute Qualifiers: Acute renal failure type: unspecified Qualified Code(s): N17.9 - Acute kidney failure, unspecified Hypothermia Qualifiers: Encounter type: initial encounter Qualified Code(s): T68.XXXA - Hypothermia, initial encounter Condition: Serious Discharge Date/Time: 03/03/21 22:57
[2021-03-03] MEDS ORDERED: DEXTROSE 5%-0.9% NACL 1,000 ML IV STA (20:23)
[2021-03-03 20:25] LABS: CORONAVIRUS 229E-RESP PCR NOT DETECTED; CORONAVIRUS HKU1-RESP PCR NOT DETECTED; CORONAVIRUS NL63-RESP PCR NOT DETECTED; CORONAVIRUS OC43-RESP PCR NOT DETECTED; HUMAN METAPNEUMOVIRUS NOT DETECTED; INFLUENZA A- RESP PCR PANEL NOT DETECTED; INFLUENZA B - RESP PCR PANEL NOT DETECTED; PARAINFLUENZA VIRUS 1 NOT DETECTED; RHINOVIRUS/ENTEROVIRUS NOT DETECTED; SARS-CoV-2 -RESP PCR PANEL NOT DETECTED
[2021-03-03 20:26] LABS: B. PARAPERTUSSIS- RESP PCR PAN NOT DETECTED; B. PERTUSSIS- RESP PCR PANEL NOT DETECTED; C. PNEUMONIAE- RESP PCR PANEL NOT DETECTED; M. PNEUMONIAE- RESP PCR PANEL NOT DETECTED; PARAINFLUENZA VIRUS 2 NOT DETECTED; PARAINFLUENZA VIRUS 3 NOT DETECTED; PARAINFLUENZA VIRUS 4 NOT DETECTED; RSV- RESP PCR PANEL NOT DETECTED
--- NOTE | 2021-03-03 20:40 | CT Report ---
PROCEDURE: HEAD WO INDICATIONS: found down, aloc TECHNIQUE: Noncontrast 4.5 mm thick angled axial sections acquired from the foramen magnum to the vertex. For r adiation dose reduction, the following was used: automated exposure control, adjustment of mA and/or kV according to patient size. COMPARISON: 12/15/2020 FINDINGS: Image quality: Excellent. CSF spaces: Basal cisterns are patent. No extra-axial fluid collections. The ventricles are symmet salma in size and shape. Brain: No intracranial bleeds or masses. There is cerebral volume loss for age, with resultant vent ricular and sulcal prominence. There are periventricular and deep white matter chronic small vessel ischemic changes. There is intracranial internal carotid artery atherosclerosis. Skull and face: Calvarium and visualized facial bones appear intact, without suspicious lesions. Sinuses: Visualized sinuses and mastoids are clear. IMPRESSION: No acute intracranial disease process. Reviewed by: Linda Peck MD, PhD on 03/03/2021 8:38 PM PDT Approved by: Linda Peck MD, PhD on 03/03/2021 8:38 PM PDT Station ID: [id number]
--- NOTE | 2021-03-03 20:44 | CT Report ---
PROCEDURE: CERVICAL SPINE WO INDICATIONS: found down, aloc TECHNIQUE: Noncontrast 3 mm thick sections acquired from the skull base to the T4 level. Sagittal and coronal r eformats were then constructed. For radiation dose reduction, the following was used: automated exp osure control, adjustment of mA and/or kV according to patient size. COMPARISON: None. FINDINGS: Image quality: Excellent. Bones: No acute fractures or dislocations. Chronic-appearing fracture of the tip of the T1 spinous p rocess. Visualized superior ribs are intact. Spine degenerative disc disease and facet arthropathy a re noted. Soft tissues: Prevertebral soft tissues are normal in thickness. No paravertebral hematomas. No ap ical pneumothoraces. IMPRESSION: 1. No acute fracture. No acute osseous lesion. If there is continued clinical concern for pathology, then MRI should be considered for further evaluation. 2. Chronic fracture of the tip of the T1 spinous process (melina shoulder's fracture). Reviewed by: Linda Peck MD, PhD on 03/03/2021 8:43 PM PDT Approved by: Linda Peck MD, PhD on 03/03/2021 8:43 PM PDT Station ID: [id number]
[2021-03-03] MEDS ORDERED: SODIUM CHLORIDE FLUSH 0.9% 10 ML SYRINGE IVP PRN (22:05)
[2021-03-03] MEDS ORDERED: GLYCOPYRROLATE 1 MG/5 ML VIAL SUBQ PRN (22:13)
[2021-03-03] MEDS ORDERED: LORazepam 2 MG/ML VIAL IVP PRN (22:13)
--- NOTE | 2021-03-03 22:15 | HISTORY & PHYSICAL EXAMINATION ---
History of Present Illness - Admitted From Admitted From:: [facility] ED - History Obtained From Records Reviewed: yes History obtained from: ED physician and patient's medical power of personal injury attorney Exam Limitations: encephalopathic - History of Present Illness HPI Comment/Other: Patient is a 59-year-old male with end-stage liver disease who was brought to the ED by EMS after he was reported by his room mate to have been on the floor of his room for the past 1.5 day. It is unclear what his baseline functional status is. In the ED he is encephalopathic, jaundiced appearing with very dry oral mucosa and has a very protuberant abdomen due to ascites with a hernia on the right lower quadrant of the abdomen. Work-up in the ED included a CMP which showed the following significant find ings: Potassium 6.3, anion gap 21, BUN 135, creatinine 5.7, total bilirubin 7.1, AST 392, ALT 139, alk phos 136, ammonia 49.7. His lactic acid was 7.5 and INR was 3.9. He was admitted at [facility] in [facility] on November 18, 2020 and discharged in January 02, 2021. At that time he had been found unresponsive by his roommate with bloody emesis and presented to [facility] ED where he was intubated for airway protection and then airlifted to [facility]. He underwent a scope by GI. Significant amount of varices were found and banded. He was encephalopathic during that hospital stay. As this was thought to be possibly secondary to when the case encephalopathy with likely component of hepatic encephalopathy. His mentation improved with lactulose he underwent a cognitive eval which showed moderate cognitive impairment and recommendations where for increased assistance at the time of discharge. He was discharged with [facility] speech therapy, RN, social work as well as APS referral for concern of self-neglect. He was presented for admission for further management. I had a conversation with the patient's medical power of personal injury attorney (Lakisha Rios) who was at bedside, highlighting how serious/critical patient's condition was and referencing the labs mentioned above. After consideration she requested the patient be admitted here at [facility] on comfort measures. History - Past Medical History GI: reports: Esophageal varices, GI bleed, Cirrhosis - Past Surgical History General: reports: EGD (with variceal banding) - Family & Social History Family History Comment/Other: Cannot obtain family history because the patient is currently encephalopathic. Social History Notes: Social history is currently limited because the patient is encephalopathic and unable to provide. - POLST Patient has POLST: Yes POLST Status: DNR Meds/Allgy - Home Medications Home Medications: Ambulatory Orders Medication Instructions Recorded Confirmed Furosemide [Lasix] 40 mg PO DAILY 03/03/21 03/03/21 Lactulose 10 gm PO TID 03/03/21 03/03/21 Nadolol [Corgard] 40 mg PO DAILY 03/03/21 03/03/21 Omeprazole 20 mg PO DAILY 03/03/21 03/03/21 Spironolactone [Aldactone] 100 mg PO DAILY 03/03/21 03/03/21 - Allergies Allergies/Adverse Reactions: Allergies Allergy/AdvReac Type Severity Reaction Status Date / Time Unable to Assess Allergy Verified 11/18/20 00:04 Review of Systems - Other Findings Other Findings: A 12 point review of system is limited because the patient is currently encephalopathic and unable to provide. Prior Level of Functionality: He supposedly has a roommate. During his last hospital stay, he underwent a cognitive evaluation and was determined to have moderate cognitive impairment. During that hospital stay and APS referral was made for self-neglect upon discharge. Exam - Vital Signs Vital Signs: Vital Signs x48h Temp Pulse Resp BP Pulse Ox 03/03/21 22:04 33.8 C L 84 11 L 105/53 L 91 L 03/03/21 21:30 33.3 C L 80 12 105/60 93 03/03/21 21:00 32.9 C L 75 11 L 103/56 L 93 03/03/21 20:30 32.5 C L 78 11 L 111/57 L 94 03/03/21 20:00 32 C L 76 11 L 109/64 96 03/03/21 19:30 31.8 C L 76 11 L 114/66 96 03/03/21 19:24 31.7 C L 78 11 L 149/50 H 96 03/03/21 18:54 77 16 131/89 H 95 03/03/21 18:15 34.9 C L 74 14 137/110 H 95 - Physical Exam General Appearance: positive: No acute distress, Lethargic, Other (Jaundiced, gaunt appearing) Eyes Bilateral: positive: PERRL, EOMI, Other (scleral icterus) ENT: positive: Dry mucous membranes Neck: positive: No JVD, Trachea midline Respiratory: positive: Chest non-tender, No respiratory distress, Other (mld crackles) Cardiovascular: positive: Regular rate & rhythm, No murmur Abdomen: positive: Hepatomegaly, Other (Protuberant abdomen, ascites and hernia noted.) Skin: positive: Dry, Other (Jaundiced, bruising noted over body) Extremities: positive: Non-tender, Pedal edema (+1 edema) Neurologic/Psychiatric: positive: Other (lethargic) Conclusion/Plan - Problem List (1) End stage liver disease Conclusion/Plan: INR 3.9, Albumin 2.1 Patient has extensive ascites Recent Hx of esophagea varices with bleeding in the past 4 months He is currently encephalopatic Patient's MELD score is 40 points. This gives an estimated 3-month mortality of 71.3% After a conversation with the patient's medical power of personal injury attorney (Lakisha Rios) h ighlighting how sick the patient currently is, She request the Comfort measures. I explained that we will mainly focus on on keeping the patient comfortable and not undertake any therapeutic measures. She expressed understanding and was agreeable with the plan. Comfort measures were initiated. (2) Ascites of liver Conclusion/Plan: Protuberant abdomen due to ascites A small hernia noted on the right lower quadrant of the abdomen Patient's MELD score is 40 points. This gives an estimated 3-month mortality of 71.3% On comfort measures currently. (3) Encephalopathy Conclusion/Plan: Possibly multifactoria Likely 2/2 to liver and renal failure BUN 135 and Ammonia 49.7 On comfort measures (4) Lactic acidosis Conclusion/Plan: Likely related to Liver Failure Lactic acid was 7.5. Patient was given 2 L of fluid in the ED. Fluids were discontinued due to significant ascites and some mild crackles in the lungs. After discussion with the patient's medical power of personal injury attorney Lakisha Rios, the patient was made comfort care. (5) Hyperkalemia Conclusion/Plan: Potassium was 6.3 Patient initially received IV hydration in the ED. He is currently comfort care. (6) Hypothermia Conclusion/Plan: Temperature was as low as 31.7 degree Celsius. Patient has a bare hugger on Qualifiers: Encounter type: initial encounter Qualified Code(s): T68.XXXA - Hypothermia, initial encounter (7) History of esophageal varices with bleeding Conclusion/Plan: He was seen at the [facility] ED for an esophageal variceal bleed within the past 3 months and was airlifted to [facility] in [place] Today he received a dose of Protonix 40 mg IV x1 and octreotide 50 mcg IV x1 in the ED. Hemoglobin is 10.6 and there is currently no sign of a bleed. Patient was made comfort care. (8) Kidney failure, acute Conclusion/Plan: Likely related to liver failure. Suspect hepatorenal syndrome. Creatinine was 5.7 with an estimated GFR of 10. Patient initially received 2 L of fluid in the ED. After discussion with the patient's medical power of personal injury attorney, he was placed on comfort measures Qualifiers: Acute renal failure type: unspecified Qualified Code(s): N17.9 - Acute kidney failure, unspecified - Lab Results Fish Bones: 03/03/21 18:25 03/03/21 18:53
[2021-03-04] MEDS: SODIUM CHLORIDE FLUSH 0.9% 10 ML SYRINGE IVP SCH ×3 (00:45→21:37)
[2021-03-04] MEDS ORDERED: ZINC OXIDE 20% OINT 30 GM TUBE TOP PRN (12:30)
[2021-03-04] MEDS: MORPHINE 2 MG/ML CARPUJECT IVP PRN ×2 (14:09→21:36)
[2021-03-04 16:20] VITALS: BP 95/53
--- NOTE | 2021-03-04 18:34 | PROVIDER PROGRESS NOTE ---
Progress Note Patient is comfort measures only. I was able to speak to he and his friend, Lakisha, who was at the bedside this morning. He was able to follow the conversation in spite of his encephalopathy. He recognizes how sick he is, and tells me that he is not change his mind. He does not want treatment and wants to be comfort measures. In speaking to case management, he is 10% service-connected. However he has 100% hospice benefits through the [facility]. Temperature is 36.9. Heart rate 90. Blood pressure 95/53. Respirations 20. 93% on room air. He is an encephalopathic, slightly confused male who is 6 foot tall and weighs 86 kg. Neck is supple, shotty adenopathy Diminished breath sounds at the bases with slow, shallow, unlabored respiration Regular rate and rhythm Abdomen is distended, soft, fluid wave palpable as is hepatomegaly Legs are edematous, bruises on his shins, dorsum of hands Neurologically speech is slow, pedantic, occasionally slurred. He is occasionally confused. But when I asked him if he is following the conversation between Lakisha and I he is able to repeat the gist of what we are discussing with regards to his desires, lack of family support, and wish to go to hospice Assessment/plan 1. End-stage liver disease. Very well documented by both hospice and admitting provider. His stated power of deputy prosecuting attorney is Lakisha miller. They are looking to get her formally declared with paperwork and [employer]st. They will to make this as easy as possible for her to speak for him. He wishes to be in hospice and as such I have asked for hospice consult. Manifestations of his end-stage liver disease which include ascites, encephalopathy, lactic acidosis, hyperkalemia, hypothermia and acute kidney failure are noted. But again, he is comfort measures only and there will be no labs. Currently getting vital signs. I will stop those as well. I appreciate hospice consult. Case management will work on finding appropriate discharge facility form.
[2021-03-05] MEDS: SODIUM CHLORIDE FLUSH 0.9% 10 ML SYRINGE IVP SCH (00:34)
--- NOTE | 2021-03-05 03:15 | DISCHARGE SUMMARY ---
Discharge Summary Admit Date: 03/03/21 Discharge Date: 03/05/21 Discharging Provider: Nuno Ye Primary Care Provider: MAKENNA Discharge Disposition: 20 - DIAGNOSES Admission Diagnoses: End-stage liver disease Ascites of liver Encephalopathy Lactic acidosis Hyperkalemia Hypothermia History of esophageal varices with bleeding Kidney failure, acute Discharge Diagnoses with Status of Each Condition: End-stage liver disease Acute kidney failure Encephalopathy Hyperkalemia History of esophageal varices Hypothermia - HPI History of Present Illness: H&P per Dr. Mcghee: Patient is a 59-year-old male with end-stage liver disease who was brought to the ED by EMS after he was reported by his room mate to have been on the floor of his room for the past 1.5 day. It is unclear what his baseline functional status is. In the ED he is encephalopathic, jaundiced appearing with very dry oral mucosa and has a very protuberant abdomen due to ascites with a hernia on the right lower quadrant of the abdomen. Work-up in the ED included a CMP which showed the following significant findings: Potassium 6.3, anion gap 21, BUN 135, creatinine 5.7, total bilirubin 7.1, AST 392, ALT 139, alk phos 136, ammonia 49.7. His lactic acid was 7.5 and INR was 3.9. [facility] and discharged in January 02, 2021. At that time he had been found unresponsive by his roommate with bloody emesis and presented to [facility] ED where he was intubated for airway protection and then airlifted to [facility]. He underwent a scope by GI. Significant amount of varices were found and banded. He was encephalopathic during that hospital stay. As this was thought to be possibly secondary to when the case encephalopathy with likely component of hepatic encephalopathy. His mentation improved with lactulose he underwent a cognitive eval which showed moderate cognitive impairment and recommendations where for increased assistance at the time of discharge. He was discharged with [facility] speech therapy, RN, social work as well as APS referral for concern of self-neglect. He was presented for admission for further management. I had a conversation with the patient's medical power of soccer coach (Lakisha Rios) who was at bedside, highlighting how serious/critical patient's condition was and referencing the labs mentioned above. After consideration she requested the patient be admitted here at [facility] on comfort measures. - HOSPITAL COURSE Hospital Course: He presented with encephalopathy likely due to hepatic encephalopathy and is acute renal failure. He was hyperkalemic with a potassium greater than 6 and his creatinine was 5.7. After discussion with the patient's power of soccer coach, a decision was made to focus on his comfort alone. He was admitted here and was started on morphine and Ativan IV as needed. We did not initiate IV fluids as the goal was to focus on his comfort. Hospice was consulted as the goal was to discharge the patient to facility on hospice. Unfortunately, he on the morning of March 05 at 3:05 AM. I did speak with his power of soccer coach and sister to notify them. - ALLERGIES Allergies/Adverse Reactions: Allergies Allergy/AdvReac Type Severity Reaction Status Date / Time Unable to Assess Allergy Verified 11/18/20 00:04 - MEDICATIONS Home Medications: Ambulatory Orders Medication Instructions Recorded Confirmed Furosemide [Lasix] 40 mg PO DAILY 03/03/21 03/03/21 Lactulose 10 gm PO TID 03/03/21 03/03/21 Nadolol [Corgard] 40 mg PO DAILY 03/03/21 03/03/21 Omeprazole 20 mg PO DAILY 03/03/21 03/03/21 Spironolactone [Aldactone] 100 mg PO DAILY 03/03/21 03/03/21 - PHYSICAL EXAM AT DISCHARGE Eyes Bilateral: positive: Other (Pupils fixed and dilated.) Respiratory: positive: Other (No respirations.) Cardiovascular: positive: Other (Absent heart sounds.) Peripheral Pulses: positive: 0 - LABS Result Diagrams: 03/03/21 18:25 03/03/21 18:53
--- NOTE | 2021-03-05 03:15 | Discharge Plan ---
Discharge Plan Problem Reviewed?: Yes Disposition: 20 No Smoking: If you smoke, Please STOP! Call for help.
== END 2021-03-05 03:05 | disposition expired | DRG 442 ==
LOC: EDUNIT# → EDBD → ED 18:12 → MS2 22:05
PROVIDERS: ADMIT Internal Medicine; ATTEND Internal Medicine
DX: K72.90 Hepatic failure, unspecified without coma (principal); N17.9 Acute kidney failure, unspecified; G93.40 Encephalopathy, unspecified; R18.8 Other ascites; E87.2 Acidosis; K46.0 Unspecified abdominal hernia with obstruction, without gangrene; E87.5 Hyperkalemia; R68.0 Hypothermia, not associated with low environmental temperature; Z87.19 Personal history of other diseases of the digestive system; Z51.5 Encounter for palliative care; Z66 Do not resuscitate; F09 Unspecified mental disorder due to known physiological condition; K74.60 Unspecified cirrhosis of liver
CPT/HCPCS: 0202U; 36415; 70450; 72125; 80053; 81003; 82140; 82550; 83605; 83690; 85025; 85610; 85730; 86850; 86900; 86901; 87040; 87150; 93005; 96361; 96374; 96375; 99285; A9270; J2354; 81001; 87086; 87181